=== PATIENT | male | born 1965 | race Two or more races ===

== ENCOUNTER 2019-10-13 08:19 | Emergency (ER) | payer MEDICAID, OTHER ==
[~2019-10-13] VITALS: Ht 172.7 cm; Wt 68.0 kg
--- NOTE | 2019-10-13 08:27 | NUR ---
pt bibra, sleeping on a bench. pt awake verbally responsive. c/o lower back pain stating it is chronic from previous injuries. denies anything current. stable vitals. awaiting md francis.
--- NOTE | 2019-10-13 09:01 | NUR ---
dr reyna at bedside for eval.
[2019-10-13] MEDS ORDERED: HYDROCODONE/APAP 5/325MG 1 EACH TABLET ONE (09:18)
[2019-10-13] MEDS ORDERED: HYDROCODONE/APAP 5/325MG 1 EACH TABLET PO ONE (09:30)
--- NOTE | 2019-10-13 09:59 | NUR ---
provided w/ meal tray.
--- NOTE | 2019-10-13 10:30 | NUR ---
ambulatory w/ steady gait. homeless discharge waiver form signed. pt provided w/ tap card. discharge home in stable condition.
[2019-10-13 10:31] VITALS: BP 125/77
== END 2019-10-13 10:32 | disposition home or self-care (01) ==
LOC: ER 08:22
DX: G89.29 Other chronic pain (principal); M54.5 Low back pain; Z59.0 Homelessness

== ENCOUNTER 2020-02-22 22:19 | Emergency (ER) | payer MEDICAID ==
[~2020-02-22] VITALS: Ht 172.7 cm; Wt 68.0 kg
[2020-02-22 22:36] VITALS: BP 114/63
== END 2020-02-22 22:58 | disposition home or self-care (01) ==
LOC: EDBD 22:20 → ER 22:20
DX: S81.852A Open bite, left lower leg, initial encounter (principal); Z59.0 Homelessness; W54.0XXA Bitten by dog, initial encounter; Y93.89 Activity, other specified; Y92.89 Other specified places as the place of occurrence of the external cause; Y99.8 Other external cause status